=== PATIENT | female | born 1990 | race Two or more races ===

== ENCOUNTER → 2016-09-21 | Outpatient (CLI) | payer OTHER ==
[~2016-09-21] MED LIST: Z.0.NO CURRENT MEDS
== END ==
LOC: HPND 10:09
DX: O28.3 Abnormal ultrasonic finding on antenatal screening of mother (principal); O35.1XX0 Maternal care for (suspected) chromosomal abnormality in fetus, not applicable or unspecified; Z3A.00 Weeks of gestation of pregnancy not specified
CPT/HCPCS: 76811